=== PATIENT | male | born 1975 | race Caucasian/White ===

== ENCOUNTER 2018-08-31 15:04 | Day surgery (SDC) | payer MEDICAID, OTHER ==
[2018-08-31] VITALS (16 sets, daily range): BP systolic 100–155; BP diastolic 62–85; PULSE 56–84; RESP 15–28; Ht 170.2 cm; Wt 64.7 kg
[~2018-08-31] VITALS: Ht 170.2 cm; Wt 64.7 kg
[~2018-08-31 15:04] MED LIST: EPHEDrine SULFATE 50 MG/5 ML SYG ONE; PROPOFOL 200 MG INJ ONE
[2018-08-31] MEDS ORDERED: LIDOCAINE 1% (MPF) 30 ML INJ ONE (16:08)
[2018-08-31] MEDS ORDERED: POLYMYXIN/BACITRACIN 1L IRRIG ONE (16:08)
[2018-08-31] MEDS ORDERED: BUPIVACAINE 0.5% (SDV) 30 ML INJ ONE (16:08)
--- NOTE | 2018-08-31 16:58 | PREAC ---
Date/Time of Note Date/Time of Note DATE: 08/31/18 TIME: 16:57 Anesthesia Eval and Record Evaluation Time Pre-Procedure Interview DATE: 08/31/18 TIME: 16:57 Age 42 Sex male NPO: 8 hrs Preoperative diagnosis right distal radius fracture, intra-articular, > 3 fragments Planned procedure ORIF right distal radius fracture Past Medical History Past Medical History: None Surgery & Anesthesia Issues No known issue Meds Anticoagulation: No Beta Joselito within 24 hr: No Reason Beta Joselito not given: Pt. not on B-Joselito Meds reviewed: Yes (none) Allergies Allergies Reviewed: Yes (NKDA) Labs/Studies Labs Reviewed: Reviewed by anesthesiologist test: N/A Pre-procedure Exam Last vitals Vital Signs Date Temp Pulse Resp B/P (MAP) Pulse Ox O2 O2 Flow FiO2 Time Delivery Rate 08/31/18 98.7 71 18 100/67 99 Room Air 15:57 (78) Airway: Adequate mouth opening, Adequate thyromental dist Mallampati: Mallampati II Teeth: Normal Lung: Normal Heart: Normal ASA Physical Status ASA physical status: 1 Emergency: None Planned Anesthetic General/MAC: LMA Nerve block: Brachial plexus (right) Planned Pain Management Single shot nerve block, Parenteral pain med Pre-operative Attestations Prior to commencing anesthesia and surgery, the patient was re-evaluated, there was verification of: *The patient's identity *The results of appropriate recent lab work and preoperative vital signs *The above evaluation not changing prior to induction *Anesthetic plan, risk benefits, alternative and complications discussed with patient/family; questions answered; patient/family understands, accepts and wishes to proceed. RAIMUNDO GRIFFITH MD Aug 31, 2018 16:58
[2018-08-31] MEDS ORDERED: PROCHLORPERAZINE 10 MG INJ IV PRN (17:30)
[2018-08-31] MEDS ORDERED: HYDROmorphONE 1 MG/5 ML IV SYRINGE IV PRN ×3 (17:30)
[2018-08-31] MEDS ORDERED: OXYCODONE/ACETAMINOPHEN (5/325) TAB PO PRN (17:30)
[2018-08-31] MEDS ORDERED: DIPHENHYDRAMINE 50 MG INJ IV PRN (17:30)
[2018-08-31] MEDS ORDERED: FENTAnyl 50 MCG/ML VIAL IV PRN ×3 (17:30)
[2018-08-31] MEDS ORDERED: LABETALOL HCL 20MG INJ IV PRN (17:30)
[2018-08-31] MEDS ORDERED: hydrALAzine 20 MG INJ IV PRN (17:30)
[2018-08-31] MEDS ORDERED: ONDANSETRON 4 MG INJ IV PRN (17:30)
[2018-08-31] MEDS ORDERED: EPHEDrine SULFATE 50 MG/5 ML SYG IV PRN (17:30)
[2018-08-31] MEDS ORDERED: MEPERIDINE 25 MG INJ IV PRN (17:30)
--- NOTE | 2018-08-31 18:03 | HPN ---
Date/Time of Note Date/Time of Note DATE: 08/31/18 TIME: 18:03 Interval H&P Admission Note Pt. seen H&P reviewed: No system changes JOVANY COE Aug 31, 2018 18:03
[2018-08-31] MEDS ORDERED: LIDOCAINE 2% (SDV) 5 ML INJ ONE (18:07)
[2018-08-31] MEDS ORDERED: PROPOFOL 20 ML ONE (18:07)
[2018-08-31] MEDS ORDERED: MIDAZOLAM 1 MG/ML 2 ML INJ ONE (18:08)
[2018-08-31] MEDS ORDERED: ROPIVACAINE 0.5 % 30 ML VIAL ONE (18:08)
[2018-08-31] MEDS ORDERED: CEFAZOLIN 1 GM INJ ONE (18:23)
[2018-08-31] MEDS ORDERED: ONDANSETRON 4 MG INJ ONE (18:30)
[2018-08-31] MEDS ORDERED: DEXAMETHASONE 4 MG/ML 5 ML INJ ONE (18:30)
[2018-08-31] MEDS ORDERED: FENTAnyl 50 MCG/ML VIAL ONE (18:30)
[2018-08-31] MEDS ORDERED: FAMOTIDINE 20 MG INJ ONE (18:30)
--- NOTE | 2018-08-31 19:31 | OPPN ---
Date/Time of Note Date/Time of Note DATE: 08/31/18 TIME: 19:30 Operative Report Preoperative Diagnosis right distal radius fracture, intra-articular, greater than 3 fragments right carpal tunnel syndrome Postoperative Diagnosis right distal radius fracture, intra-articular, greater than 3 fragments right carpal tunnel syndrome Operation/Procedure Performed right distal radius fracture, intra-articular, greater than 3 fragments ORIF right carpal tunnel release lengthening of the brachioradialis tendon right wrist Surgeon see signature line production administrative assistant none Anesthesia: general Estimated blood loss: 0 - 10 ml's Transfusion Required none Specimen none Grafts/Implants none Complications none JOVANY COE Aug 31, 2018 19:31
--- NOTE | 2018-08-31 19:39 | PAC ---
Date/Time of Note Date/Time of Note DATE: 08/31/18 TIME: 19:36 Post-Anesthesia Notes Post-Anesthesia Note Last documented vital signs Vital Signs Date Temp Pulse Resp B/P (MAP) Pulse Ox O2 O2 Flow FiO2 Time Delivery Rate 08/31/18 98.7 71 18 100/67 99 Room Air 15:57 (78) Activity: WNL Respiratory function: WNL Cardiovascular function: WNL Mental status: Baseline Pain reasonably controlled: Yes Hydration appropriate: Yes Nausea/Vomiting absent: Yes Comments BP: 139/78 HR: 63 RR: 15 T: 97.9 SaO2: 100% RAIMUNDO GRIFFITH MD Aug 31, 2018 19:39
--- NOTE | 2018-08-31 20:10 | OPR ---
DATE OF OPERATION: 08/31/2018 SURGEON: Jovany Cheema MD. ANESTHESIA: Peripheral nerve block plus general. PREOPERATIVE DIAGNOSES: 1. Right distal radius fracture, intra-articular, greater than 3 fragments. 2. Right carpal tunnel syndrome. POSTOPERATIVE DIAGNOSES: 1. Right distal radius fracture, intra-articular, greater than 3 fragments. 2. Right carpal tunnel syndrome. PROCEDURES: 1. Open reduction and internal fixation of right distal radius fracture, intra-articular, greater th an 3 fragments. 2. Right carpal tunnel release, open. 3. Lengthening of the right wrist brachioradialis tendon at the radial styloid. OPERATIVE FINDINGS: Displaced comminuted intra-articular right distal radius fracture with swelling within the carpal canal. INDICATION FOR PROCEDURE: A 42-year-old male with injury to right wrist, who was seen in clinic and diagnosed with displaced intra-articular distal radius fracture. He also had numbness. We discussed the options, the patient elected to proceed with surgical intervention, understanding risks and bene fits. DESCRIPTION OF PROCEDURE: The patient was seen in the preoperative area. All further questions were answered. Again, he gave informed consent understanding risks and benefits. He was taken to operat [facility] suite and placed in supine position. The anesthesia team performed a peripheral nerve block and the patient was placed under general anesthesia. Ancef 2 grams IV given, and tourniquet placed in th e right upper extremity. Right upper extremity was prepped with ChloraPrep stick and draped in usual sterile fashion. Esmarch bandage was used to exsanguinate the extremity and tourniquet inflated to 250 mmHg. Attention was first turned to distal radius fracture in a modified volar Amrik approach. The distal radius was utilized with sharp dissection carried down through skin and subcutaneous tissu e. The FCR sheath was incised and the FCR tendon retracted ulnarly. The FCR subsheath incised and F PL tendon retracted ulnarly. The pronator quadratus was elevated off the distal radius on its radial and distal borders using Bovie electrocautery. The fracture was reduced into a more anatomic positi on and a [employer] volar distal radius plate was placed across the fracture site. Cortical and lockin g screws were placed proximally and distally. X-ray imaging showed improved bony alignment and appro priate replacement. Prior to fracture reduction, the brachioradialis tendon was placing a radially d irected force which was displacing the distal fracture fragment. A decision was made to perform a fr actional lengthening of the brachioradialis tendon. This was achieved using Bovie electrocautery and a 15 blade knife. This allowed me to achieve more length of the distal radius fragment as well as b ringing it more ulnar into a more anatomic position. Wound was copiously irrigated and skin closed w ith 5-0 nylon. Attention was turned to the carpal tunnel and a 2 cm incision was made at the base of the palm with sharp dissection carried down through skin and subcutaneous tissue. The palmar aponeu rosis was incised along its ulnar border and retractors were deepened. The transverse carpal ligamen t was divided along its ulnar border approximately 3 mm radial to the hook of the hamate. Retractor was placed proximally and distally. The proximal and distal extents of transverse carpal ligament we re divided under direct visualization. Wound was copiously irrigated. Skin closed with 5-0 nylon. Xeroform was placed over the wound followed by sterile gauze, Webril, and a short arm splint. Tourni quet deflated after 43 minutes and patient was awakened from anesthesia. He was taken to postoperati ve suite in stable condition, tolerated the procedure well without complication. SPECIMENS: None. ESTIMATED BLOOD LOSS: 5 mL. COUNTS: Sponge, instrument, needle counts correct. TOURNIQUET TIME: 43 minutes. CONDITION ON DISCHARGE: Stable. The patient was given a non-refillable 5 day prescription for pain medication with surgery today. Dictated By: JOVANY SANCHEZ/HANNAH Conf#: [id number] DID#: [id number]
== END 2018-08-31 21:04 | disposition home or self-care (01) ==
LOC: SDS 15:04
PROVIDERS: ATTEND Orthopaedic Surgery Hand Surgery
DX: S52.571D Other intraarticular fracture of lower end of right radius, subsequent encounter for closed fracture with routine healing (principal); W19.XXXD Unspecified fall, subsequent encounter; G56.01 Carpal tunnel syndrome, right upper limb
CPT/HCPCS: 64721; 73110; C1713; J0690; J1100; J2250; J2405; J2795; J3010; Z7512; Z7610